=== PATIENT | male | born 1940 ===

== ENCOUNTER → 2019-11-17 08:14 | Outpatient (CLI) | payer BC, MEDICARE ==
--- NOTE | ~2019-11-17 | ST ---
PATIENT:KAE WOODS MEDICAL RECORD: [id number] SEX: M LOCATION:[facility] ORDER #: ADMISSION DATE: 11/17/19 AGE OF PATIENT: 79 REFERRING PHYSICIAN: INTERPRETING PHYSICIAN: JESSICA PANIAGUA MD DATE OF SERVICE: 11/17/2019 NUCLEAR STRESS TEST INDICATION: Angina and coronary artery disease, shortness of breath, hypertension and hyperlipidemia. The patient was exercised on standard Lexiscan protocol with 33 mCi of sestamibi injected at peak stress, 11 mCi used previously for rest images. FINDINGS: Gated SPECT reveals preserved ejection fraction at 67% with good wall motioning and thickening and brightening throughout all segments. SPECT imaging Cardiolite was used as myocardial perfusion agent. There is reversibility inferiorly and apically. This includes the basal, mid, apical inferior segments as well as the apex itself. The degree of reversibility is mild to moderate. The amount of myocardium involved is moderate. OVERALL IMPRESSION: This is an intermediate risk abnormal nuclear stress test, reversibility inferiorly and apically suggestive of hemodynamically significant coronary artery disease. TRANSINT:[id number] Voice Confirmation ID: [id number] DOCUMENT ID: [id number] JESSICA PANIAGUA MD CC: BRIDGETT BOOKER [id number] DICTATION DATE: 11/18/19916 CHEMICAL RECLAMATION EQUIPMENT OPERATOR: 11/19/19618 DEP CLI 11/17/19 [place] [id number] [place] [id number]
== END | disposition home or self-care (01) ==
LOC: D.HCCARDIO 08:14
PROVIDERS: ATTEND Internal Medicine Interventional Cardiology
DX: I25.10 Atherosclerotic heart disease of native coronary artery without angina pectoris (principal)

== ENCOUNTER 2019-11-24 09:03 | Outpatient (CLI) | payer BC ==
[~2019-11-24] VITALS: Ht 180.3 cm; Wt 84.1 kg
--- NOTE | ~2019-11-24 | HEMODYNAMI ---
PATIENT:KAE WOODS MEDICAL RECORD: [id number] : 36 LOCATION:D.CAT ADMISSION DATE: 11/24/19 Generatedon:11/24/201913:14 Patient name: KAE WOODS Patient #: [id number] SSN: DO B: 1940 Date of study: 11/24/2019 Page: Of Hemodynamic Procedure Report Patient Data Patient Demographics Procedure consent was obtained First Name: KAE Gender: Male Last Name: PEGGY : 1940 Middle Initial: R Age: 79 year(s) Patient #: [id number] Race: Unknown Additional ID: [id number] Contact details Address: [address] [place] [address] State: [place] City: [place] Zip code: [address] Past Medical History Allergies: No known allergies Admission Admission Data Admission Date: 11/24/2019 Admission Time: 9:03 Arrival Date: 11/24/2019 Arrival Time: 0:00 Height (in.): 71 BSA: 2.04 (m2) Height (cm.): 180.34 BMI: 25.83 (kg/m2) Weight (lbs.): 185.19 Weight (kg.): 84 Lab Results Lab Result Date: 11/24/2019 Lab Result Time: 0:00 Biochemistry Name Units Result Min Max BUN mg/dl 28 --(----)-* 7 18 Creatinine mg/dl 1.6 --(----)-* 0.6 1.3 eGFR ml/min 44 *-(----)-- 90 120 NONAFRICAN CBC Name Units Result Min Max Hematocrit % 39.3 -*(----)-- 42 54 Hemoglobin g/dl 13.4 -*(----)-- 13.5 17.5 Procedure Procedure Types Cath Procedure Diagnostic Procedure [facility] w/Coronaries FFR/IVUS FFR Initial Sedation Charges Moderate Sedation up to 15 minutes PCI Procedure PTCA PTCA Initial Hemochron ACT Test Procedure Description Procedure Date Procedure Date: 11/24/2019 Procedure Start Time: 12:27 Procedure End Time: 13:12 Procedure Staff Name Function Jona Sellers MD Performing Physician Beryl Shields RT Monitor Fernando Wright RT Scrub Nichol Neumann RN Nurse Procedure Data Cath Procedure Fluoroscopy Diagnostic fluoroscopy Total fluoroscopy Time: time: 12.8 min 12.8 min Diagnostic fluoroscopy Total fluoroscopy dose: dose: 441.31 mGy 441.31 mGy Contrast Material Contrast Material Type Amount (ml) Isovue 300 142 Entry Location Entry Primary Successful Side Size Upsize Upsize Entry Closure Succes sful Closure Location (Fr) 1 (Fr) 2 (Fr) Remarks Device Remarks Femoral Right 5 Fr 6 Fr Exoseal artery Short Estimated blood loss: 10 ml Diagnostic catheters Device Type Used For End Catheter Placement MULTIPACK Pigtail 5 Fr Procedure catheter MULTIPACK JL 4.0 5Fr Procedure catheter MULTIPACK 3DRC 5Fr Procedure catheter Procedure Complications No complications Procedure Medications Medication Administration Route Dosage Oxygen etCO2 Nasal cannula 2 l/min Lidocaine 2% added to field 20 Heparin Flush Bag added to field 2 bags (1000units/500ml NS) 0.9% NaCl I.V. 100 ml/hr Versed I.V. 1 mg Fentanyl I.V. 50 mcg Heparin Bolus I.V. 4000 units Integrilin (Bolus I.V. 7.3 ml 2mg/ml) Versed I.V. 1 mg Fentanyl I.V. 50 mcg Nitroglycerin IC/IA I.C. 200 mcg Fentanyl I.V. 50 mcg Fentanyl I.V. 50 mcg Hemodynamics Rest BSA: 2.04 (m2) O2 Consumption: Estimated: 214.99 (ml/min) O2 Consumption indexed : Estimated:105.39 (ml/min/m) Heart Rate: 47 (bpm) Snapshots Pre Cath Intra NCS Post Cath Vital Signs Time Heart Resp SPO2 etCO2 NIBP (mmHg) Rhythm Pain Sedation Rate (ipm) (%) (mmHg) Status Level (bpm) 12:21:48 53 17 100 31.5 Measuring NSR (Missing) 10(A) 12:22:05 53 17 100 33 193/98(170) NSR (Missing) 10(A) 12:26:37 50 19 100 35.2 176/79(153) NSR (Missing) 10(A) 12:31:05 49 15 100 36.7 168/81(139) NSR (Missing) 9(A) 12:35:32 50 14 100 0 167/79(144) NSR (Missing) 9(A) 12:40:47 51 11 100 9.7 166/79(140) NSR (Missing) 9(A) 12:46:13 50 12 100 3.7 182/98(158) NSR (Missing) 9(A) 12:50:39 52 10 100 26.2 183/91(144) NSR (Missing) 10(A) 12:55:03 71 21 100 29.2 199/111(166) NSR (Missing) 9(A) 12:59:34 65 16 100 30.7 211/109(167) NSR (Missing) 9(A) 13:04:10 58 10 99 24 212/106(163) NSR (Missing) 9(A) 13:08:47 56 12 100 37.5 193/98(154) NSR (Missing) 10(A) 13:13:15 56 10 99 33.7 190/99(159) NSR (Missing) 10(A) Medications Time Medication Route Dose Verified Delivered Reason Note s Effectiveness by by 12:20:11 Oxygen etCO2 2 Jona Buffie used for Nasal l/min Verito Neumann RN procedure cannula 12:20:18 Lidocaine 2% added 20ml Jona Jona for local to vial Verito Sellers MD anesthetic field 12:20:24 Heparin Flush added 2 bags Jona Jona used for Bag to Verito Sellers MD procedure (1000units/500ml field NS) 12:20:33 0.9% NaCl I.V. 100 Jona Buffie Per physician ml/hr Verito Neumann RN 12:27:40 Versed I.V. 1 mg Jona Buffie for sedation Verito Neumann RN 12:27:46 Fentanyl I.V. 50 mcg Jona Buffie for sedation Verito Neumann RN 12:31:30 Versed I.V. 1 mg Jona Buffie for sedation Verito Neumann RN 12:31:34 Fentanyl I.V. 50 mcg Jona Buffie for sedation Verito Neumann RN 12:34:59 Heparin Bolus I.V. 4000 Jona Buffie for veri fied units Verito Neumann RN anticoagulation with dr sellers 12:38:18 Integrilin I.V. 7.3 ml Jona Gandara for wast ed (Bolus 2mg/ml) Verito Neumann RN antiplatelet 2.7 ml therapy of vial 12:54:07 Nitroglycerin I.C. 200mcg Jona Tenorio for IC/IA Verito Sellers MD vasodilation 12:55:59 Fentanyl I.V. 50 mcg Jona Gandara for sedation Verito Neumann RN 12:58:23 Fentanyl I.V. 50 mcg Jona Gandara for sedation Verito Neumann RN Procedure Log Time Note 12:03:15 Informed consent obtained and on chart 12:03:41 Fernando Wright RT(R) (CV) sent for patient. Start room use. 12:03:43 Procedure Status Elective Heart Cath (OP). 12:03:45 Time tracking: Regular hours (M-F 7:00 - 5:00) 12:03:49 Plan of Care:Hemodynamics will remain stable., Cardiac rhythm will remain stable., Comfort level will be maintained., Respiratory function will remain adequate., Patient/ family verbilizes understanding of procedure., Procedure tolerated without complication., Recovers from procedure without complications.. 12:04:03 H&P Date Dictated: 11/10/2019 Within 30 days and on chart., H&P Addendum completed by physician on day of procedure. (MUST COMPLETE FOR ALL OUTPATIENTS). 12:04:10 Patient allergic to No known allergies 12:04:58 Patient Weight : 185.19 lbs 12:06:09 Lab Result : BUN 28 mg/dl 12:06:09 Lab Result : Creatinine 1.6 mg/dl 12:06:09 Lab Result : eGFR NONAFRICAN 44 ml/min 12:06:09 Lab Result : Hemoglobin 13.4 g/dl 12:06:09 Lab Result : Hematocrit 39.3 % 12:08:46 Patient Height : 71 inches 12:08:52 Arrival Date: 11/24/2019 12:00:00 AM 12:09:31 Patient received from Pre/Post Procedure Room to CCL 3 Alert and oriented. Tansferred to table in Supine position. 12:09:32 Warm blankets applied, and artie hugger turned on for patient comfort. 12:09:33 Correct patient and procedure confirmed by team. 12:09:33 ECG and BP/O2 sat monitors applied to patient. 12:19:32 Pre-procedure instructions explained to patient. 12:19:33 Pre-op teaching completed and patient verbalized understanding. 12:19:35 Family in patients room. 12:19:36 Patient NPO since Midnight. 12:19:38 Is the patient allergic to Iodine/contrast media? No. 12:19:41 Is patient on blood thinner?No 12:19:43 Patient diabetic? No. 12:19:46 Previous problem with sedation/anesthesia? No ? 12:19:48 Snore? Yes 12:19:49 Sleep apnea? No 12:19:51 Deviated septum? No 12:19:52 Opens mouth fully? Yes 12:19:54 Sticks out tongue? Yes 12:19:56 Airway obstruction? No ? 12:20:00 Vital chart was started 12:20:11 Oxygen 2 l/min etCO2 Nasal cannula was administered by Nichol Neumann RN; used for procedure; Verbal order read back and verified. 12:20:11 Dentures? Yes in 12:20:17 Pre procedure: right dorsailis pedis pulse 1+ Palpable, but thready & weak; easily obliterated 12:20:18 Lidocaine 2% 20ml vial added to field was administered by Jona Sellers MD; for local anesthetic; Verbal order read back and verified. 12:20:20 Patient pain scale 0/10 ?. 12:20:24 Heparin Flush Bag (1000units/500ml NS) 2 bags added to field was administered by Jona Sellers MD; used for procedure; Verbal order read back and verified. 12:20:26 IV patent on arrival in left hand with 0.9% NaCl at [facility]. 12:20:28 Lab results completed and on chart. 12:20:33 0.9% NaCl 100 ml/hr I.V. was administered by Nichol Neumann RN; Per physician; Verbal order read back and verified. 12:20:47 Right groin area was prepped with chlora-prep and draped in sterile fashion 12:20:48 Alarms reviewed by R. N. 12:20:49 Sharps counted by scrub and verified by R.N. 12:23:57 Risk of Mortality: .3 12:23:59 Risk of blood transfusion: .1 12:24:03 Risk of MAMI: 1.8 12:24:07 --------ALL STOP TIME OUT------ 12:24:08 Final Timeout: patient, procedure, and site verified with staff and physician. All members of the team are in agreement. 12:24:09 Right groin site verified by team. 12:24:12 Fire Safety Assessment: A--An alcohol-based skin anteseptic being used preoperatively., C--Open oxygen or nitrous oxide is being used., D--An ESU, laser, or fiber-optic light is being used. 12:24:14 Physical assessment completed. ASA score P 2 - A patient with mild systemic disease as per Jona Sellers MD. 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 12:24:23 Maximum allowable contrast dose (3.7 X eGFR X 0.75)122 ml. 12:24:25 Sedation plan: IV Moderate Sedation Medication:Versed, Fentanyl 12:25:27 Use device set Femoral Dx 12:25:28 ACIST Syringe (23758) opened to sterile field. 12:25:28 Bag Decanter (2002S) opened to sterile field. 12:25:29 ACIST Hand Control (14240) opened to sterile field. 12:25:30 ACIST Manifold (69331) opened to sterile field. 12:25:30 Tegaderm 4 x 4 (1626W) opened to sterile field. 12:25:31 Medline Cath Pack ([id number]) opened to sterile field. 12:25:32 DIAGNOSTIC Multipack 5Fr catheter set (DH1672) opened to sterile field. 12:25:33 SHEATH 5FR [place] (NVE274) opened to sterile field. 12:25:33 EMERALD Guide Wire (521-163) opened to sterile field. 12:26:27 Zero performed for pressure channel P1 12:27:22 Procedure started. 12:27:22 Full Disclosure recording started 12:27:38 Local anesthetic to right femoral artery with Lidocaine 2% by Jona Sellers MD.INITIAL ACCESS ONLY 12:27:40 Versed 1 mg I.V. was administered by Nichol Neumann RN; for sedation; Verbal order read back and verified. 12:27:46 Fentanyl 50 mcg I.V. was administered by Nichol Neumann RN; for sedation; Verbal order read back and verified. 12::49 Baseline sample Acquired. 12:27:52 Rhythm: sinus bradycardia 12::07 A 5 Fr sheath was inserted into the Right Femoral artery 12::35 A MULTIPACK Pigtail 5 Fr catheter was advanced over the wire and used for Procedure. 12::49 LV gram done using SHAH 12::51 Injector settings: Ml/sec: 10, Volume: 20, 12:30:07 EF : 60 % 12:30:09 Catheter removed. 12:30:17 A MULTIPACK JL 4.0 5Fr catheter was advanced over the wire and used for Procedure. 12:31:13 LCA angiography performed. 12:31:17 Catheter removed. 12:31:22 A MULTIPACK 3DRC 5Fr catheter was advanced over the wire and used for Procedure. 12:31:30 Versed 1 mg I.V. was administered by Nichol Neumann RN; for sedation; Verbal order read back and verified. 12:31:34 Fentanyl 50 mcg I.V. was administered by Nichol Neumann RN; for sedation; Verbal order read back and verified. 12:32:02 RCA angiography performed. 12:32:09 Catheter removed. 12:32:39 ACCDominant side:Right 12:32:47 Proceeding to intervention. 12:32:58 SHEATH 6FR [place] (FXY225) opened to sterile field. 12:32:58 INFLATOR Merit BasixCompak (TR2458) opened to sterile field. 12:32:58 [place] Verrata Plus pressure wire (56804Z) opened to sterile field. 12:33:07 GUIDE 6FR EBU 3.5 catheter ([id number]) opened to sterile field. 12:33:19 Sheath upsized to a 6 Fr Short. 12:33:29 GUIDE 6FR HS II catheter (IN2XVPW) opened to sterile field. 12:34:00 6 Fr HS 2 guide catheter was inserted over the wire 12:34:59 Heparin Bolus 4000 units I.V. was administered by Nichol Neumann RN; for anticoagulation; verified with dr sellers Verbal order read back and verified. 12:35:41 FFR/IFR wire advanced. 12:35:48 Wire advanced across lesion. 12:35:56 RCA lesion measured at .94 with IFR 12:36:01 Wire removed. 12:36:02 Guide catheter removed. 12:36:17 6 Fr EBU 3.5 guide catheter was inserted over the wire 12:38:18 Integrilin (Bolus 2mg/ml) 7.3 ml I.V. was administered by Nichol Neumann RN; for antiplatelet therapy; wasted 2.7 ml of vial Verbal order read back and verified. 12:38:41 CHOICE PT Extra Support 182cm wire ([id number]) opened to sterile field. 12:38:52 CHOICE ES 182 wire advanced. 12:40:13 Wire removed. 12:40:21 NEW WIRE NEEDED. 12:40:24 CHOICE PT Extra Support 182cm wire ([id number]) opened to sterile field. 12:40:36 CHOICE ES 182 wire advanced. 12:40:38 Wire advanced across lesion. 12:40:51 Pre PCI Site: [place] LAD has 95% stenosis. 12:42:13 Inflate balloon Inflation number: 1 A EUPHORA 2.0 x 15 Balloon ([id number]) was prepped and advanced across the Mid LAD , then inflated to 13 EDELMIRA for 0:00 (min:sec) . 12:42:28 Inflation number: 2 The EUPHORA 2.0 x 15 Balloon ([id number]) was reinflated across the Mid LAD , to 21 EDELMIRA for 0:00 (min:sec) . 12:42:38 Inflation number: 3 The EUPHORA 2.0 x 15 Balloon ([id number]) was reinflated across the Mid LAD , to 21 EDELMIRA for 0:00 (min:sec) . 12:42:52 Balloon removed over the wire. 12:44:31 The FORTUNATO OTW 2.25 x 22 stent ([id number]) was advanced then removed because of failure to cross lesion 12:45:51 Inflation number: 4 The EUPHORA 2.0 x 15 Balloon ([id number]) was reinflated across the Mid LAD , to 17 EDELMIRA for 0:00 (min:sec) . 12:46:07 Balloon removed over the wire. 12:47:26 The Mozec Rx 2.5 x 20 balloon was advanced and then removed because of failure to cross lesion 12:48:46 The EUPHORA 2.5 x 20 Balloon ([id number]) was advanced and then removed because of failure to cross lesion 12:50:02 Inflate balloon Inflation number: 5 A EUPHORA 1.5 x 20 Balloon ([id number]) was prepped and advanced across the Mid LAD , then inflated to 21 EDELMIRA for 0:00 (min:sec) . 12:50:34 Balloon removed over the wire. 12:51:58 The EUPHORA 2.5 x 20 Balloon ([id number]) was advanced and then removed because of failure to cross lesion 12:53:47 Inflate balloon Inflation number: 6 A EUPHORA 2.0 x 20 Balloon (HOW0804T) was prepped and advanced across the Mid LAD , then inflated to 17 EDELMIRA for 0:00 (min:sec) . 12:53:48 ACT drawn and resulted at 293 seconds. (normal therapeutic range 180-240 seconds). 12:54:07 Nitroglycerin IC/IA 200mcg I.C. was administered by Jona Sellers MD; for vasodilation; Verbal order read back and verified. 12:54:14 Inflation number: 7 The EUPHORA 2.0 x 20 Balloon ([id number]) was reinflated across the Mid LAD , to 21 EDELMIRA for 0:00 (min:sec) . 12:54:53 Balloon removed over the wire. 12:54:58 CHOICE PT Extra Support 182cm wire ([id number]) opened to sterile field. 12:55:10 2ND WIRE USED A KASSIE WIRE 12:55:52 KASSIE WIRE ADVANCED ACROSS WIRE 12:55:59 Fentanyl 50 mcg I.V. was administered by Nichol Neumann RN; for sedation; Verbal order read back and verified. 12:56:47 The EUPHORA 2.0 x 20 Balloon ([id number]) was advanced and then removed because of failure to cross lesion 12:58:23 Fentanyl 50 mcg I.V. was administered by Nichol Neumann RN; for sedation; Verbal order read back and verified. 12:58:29 KASSIE WIRE REMOVED 12:59:10 Timer 1 started at 12:58 PM, stopped at 12:59 PM, duration 00:00:14 sec. 12:59:16 Inflate balloon Inflation number: 8 A EUPHORA 1.5 x 20 Balloon ([id number]) was prepped and advanced across the Mid LAD , then inflated to 17 EDELMIRA for 0:00 (min:sec) . 12:59:35 Timer 1 started at 12:59 PM, stopped at 12:59 PM, duration 00:00:04 sec. 12:59:36 Inflation number: 9 The EUPHORA 1.5 x 20 Balloon ([id number]) was reinflated across the Mid LAD , to 17 EDELMIRA for 0:00 (min:sec) . 12:59:55 Balloon removed over the wire. 13:00:57 The EUPHORA 2.0 x 20 Balloon (KDN1395T) was advanced and then removed because of failure to cross lesion 13:02:00 Wire removed. 13:02:00 Guide catheter removed. 13:02:26 EXOSEAL 6Fr (EX600) opened to sterile field. 13:02:36 Sheath removed intact; hemostasis achieved with Exoseal to the Right Femoral artery. 13:02:38 Procedure ended.(Physican Out) 13:03:28 Fluoroscopy time 12.80 minutes. 13:03:34 Fluoroscopy dose: 441.31 mGy 13:03:34 Flurop Dose total: 441.31 13:05:02 Dose Area Product 2853 mGy/cm. 13:05:07 Contrast amount:Isovue 300 142ml. 13:05:12 Maximum allowable dose exceeded? Yes. 13:05:14 Sharps counted by scrub and verified by R.N. 13:05:19 Post-op/insertion site Right Femoral artery dressed using a 4 x 4 and Tegaderm. 13:05:35 Post-procedure physical assessment completed. ASA score P 2 - A patient with mild systemic disease as per Jona Sellers MD. 13:05:38 Post procedure rhythm: unchanged. 13:05:43 Estimated blood loss: 10 ml 13:05:44 Post procedure instruction explained to patient.Patient verbalizes understanding. 13:05:44 Patient needs reinforcement of post procedure teaching. 13:06:20 Procedure type changed to Cath procedure, Diagnostic procedure, LHC, LHC w/Coronaries, FFR/IVUS, FFR Initial, Sedation Charges, Moderate Sedation up to 15 minutes, PCI procedure, PTCA, PTCA Initial, Hemochron ACT Test 13:09:46 Femstop placed over the right femoral artery at 132 mmHg. Hemostasis achieved. 13:09:49 Procedure and supply charges have been captured, reviewed, submitted and are correct. 13:10:08 Procedure Complication : No complications 13:10:16 [facility] Findings: MVD- CABG consult 13:10:21 [facility] Findings: MVD- PCI performed (see procedure note) 13:10:23 Operative report dictated upon procedure completion. 13:10:24 See physician's report for complete and final results. 13:10:25 Report given to Pre/Post Procedure Room. 13:10:42 Patient transfered to Pre/Post Procedure Room with Bed. 13:12:41 Vital chart was stopped 13:12:44 Procedure ended. 13:12:44 Full Disclosure recording stopped 13:12:49 End room use (Document Last) 13:13:10 End room use (Document Last) 13:13:47 End room use (Document Last) Intervention Summary Intervention Notes Time ActionType Lesion and Equipment Action# Pressure Duration Attributes Used 12:42:13 Inflate Mid LAD EUPHORA 2.0 x 1 13 00:00 balloon 15 Balloon ([id number]) 12:42:28 Reinflate Mid LAD EUPHORA 2.0 x 2 21 00:00 balloon 15 Balloon ([id number]) 12:42:38 Reinflate Mid LAD EUPHORA 2.0 x 3 21 00:00 balloon 15 Balloon ([id number]) 12:44:31 Discard FORTUNATO OTW 2.25 Stent x 22 stent ([id number]) 12:45:51 Reinflate Mid LAD EUPHORA 2.0 x 4 17 00:00 balloon 15 Balloon ([id number]) 12:47:26 Discard Mozec Rx 2.5 Balloon x 20 balloon 12:48:46 Discard EUPHORA 2.5 x Balloon 20 Balloon ([id number]) 12:50:02 Inflate Mid LAD EUPHORA 1.5 x 5 21 00:00 balloon 20 Balloon ([id number]) 12:51:58 Discard EUPHORA 2.5 x Balloon 20 Balloon (LDH8453B) 12:53:47 Inflate Mid LAD EUPHORA 2.0 x 6 17 00:00 balloon 20 Balloon (DDY1609A) 12:54:14 Reinflate Mid LAD EUPHORA 2.0 x 7 21 00:00 balloon 20 Balloon ([id number]) 12:56:47 Discard EUPHORA 2.0 x Balloon 20 Balloon ([id number]) 12:59:16 Inflate Mid LAD EUPHORA 1.5 x 8 17 00:00 balloon 20 Balloon (SLM5069V) 12:59:36 Reinflate Mid LAD EUPHORA 1.5 x 9 17 00:00 balloon 20 Balloon ([id number]) 13:00:57 Discard EUPHORA 2.0 x Balloon 20 Balloon ([id number]) Device Usage Item Name Manufacture Quantity Catalog Number Hospital Part Current Minimal Lot# / Charge Number Stock Stock Serial# Code ACIST Syringe Acist 1 54437 146661 117673 500301 20 (62213) Medical Systems Inc Bag Decanter Microtek 1 2001S 635574 40477 366103 5 (2001S) Medical Inc. ACIST Hand Acist 1 34196 878177 647862 023882 5 Control Medical (53461) Systems Inc ACIST Acist 1 91583 444482 077508 578783 5 Manifold Medical (78158) Systems Inc Tegaderm 4 x 3M 1 1626W 382051 556642 050230 5 4 (1626W) Medline Cath Medline 1 [id number] 455547 69666 762139 5 Pack ([id number]) DIAGNOSTIC Cardinal 1 ME7642 808856 50190 263015 30 Multipack 5Fr Health catheter set (UC2155) SHEATH 5FR Terumo 1 CMC588 964369 850584 070972 5 [place] (XZU460) EMERALD Guide Cardinal 1 502-455 779547 263596 285704 5 Wire Health (502-455) MULTIPACK Cardinal 1 808543 5 Pigtail 5 Fr Health catheter MULTIPACK JL Cardinal 1 350218 5 4.0 5Fr Health catheter MULTIPACK Cardinal 1 626640 5 3DRC 5Fr Health catheter SHEATH 6FR Terumo 1 VPB819 209388 412567 108621 40 [place] (UQH007) INFLATOR Merit 1 TI8378 299974 790440 421375 15 [facility] Medical BasixCompak (IR0693) [place] 1 61645S 585359 073602686 445658 5 Verrata Plus pressure wire (42227X) GUIDE 6FR EBU Medtronic 1 [id number] 757047 04855 040860 3 3.5 catheter ([id number]) GUIDE 6FR HS Medtronic 1 [id number] 054707 70478 652187 1 II catheter (EN2VSGE) CHOICE PT [place] 3 [id number] 002141 638071 360866 5 Extra Support Scientific 182cm wire ([id number]) EUPHORA 2.0 x Medtronic 1 APF0043Z 237292 649833 114428 5 15 Balloon ([id number]) FORTUNATO OTW 2.25 Medtronic 1 [id number] 379250 76121 773100 5 x 22 stent ([id number]) Mozec Rx 2.5 Cardinal 1 [id number] 704025 76032 000861 5 x 20 balloon Health EUPHORA 2.5 x Medtronic 1 [id number] 364082 242625 580963 5 20 Balloon ([id number]) EUPHORA 1.5 x Medtronic 2 [id number] 401363 843854 947388 5 20 Balloon ([id number]) EUPHORA 2.0 x Medtronic 1 [id number] 894618 536807 767105 5 20 Balloon ([id number]) EXOSEAL 6Fr Cardinal 1 EX600 547674 135553 029279 10 (EX600) Health Signature Audit [place] Stage Time Signature Unsigned Intra-Procedure 11/24/2019 Beryl Shields 1:13:10 PM RT(R) Intra-Procedure 11/24/2019 Nichol Neumann RN 1:13:47 PM Intra-Procedure 11/24/2019 Jona Sellers 1:14:21 PM [place] [id number] [facility] [place] [address]
--- NOTE | ~2019-11-24 | OP ---
PATIENT NAME: KAE WOODS MEDICAL RECORD: [id number] :36 LOCATION:D.CAT ADMISSION DATE: SURGEON: JESSICA PANIAGUA MD DATE OF OPERATION: 11/24/2019 PROCEDURES: 1. PTCA, LAD. 2. IFR RCA. 3. Left heart catheterization. 4. Selective coronary angiography. 5. Left ventriculogram. INDICATION: Angina and coronary artery disease. PROCEDURE IN DETAIL: After informed consent was obtained and after detailed explanation of risks, benefits as well as alternative therapies, the patient elected to proceed with angiogram and angioplasty. The right femoral area was prepped and draped in normal sterile fashion. Right femoral artery was cannulated via modified Seldinger technique with placement of 6-Bolivian sheath. All catheters exchanged through this sheath. FINDINGS: Left ventriculogram was performed in standard 30-degree SHAH view, reveals good cardiac wall motion throughout all segments. Overall ejection fraction estimated at 60%. SELECTIVE CORONARY ANGIOGRAPHY: 1. Left main showed no significant angiographic disease. 2. Left anterior descending has a previously placed stent. This has 99% in-stent restenosis distally. 3. Left circumflex has mild irregularities, but no flow-limiting stenosis. 4. The right coronary has a questionable 70% stenosis distally; however, IFR was normal. PTCA OF THE LAD: We tried multiple balloons. The only balloon that would go across is a 1.5 balloon and each time we inflated the 1.5 balloon, we had a balloon rupture, no 2/2.5 balloon would go into this stenosis. OVERALL IMPRESSION: 99% stenosis of the LAD amenable to bypass surgery only. TRANSINT:[id number] Voice Confirmation ID: [id number] DOCUMENT ID: [id number] JESSICA PANIAGUA MD CC: [id number] DICTATION DATE: 11/24/19 1308 BODY MECHANIC: 11/24/19 1548 DEP CLI 11/24/19 [place] [id number] [place] [address]
[2019-11-24] MEDS ORDERED: GABAPENTIN100 MG PO (09:44)
[2019-11-24] MEDS ORDERED: LISINOPRIL-HCT1 EAC4 PO (09:44)
[2019-11-24] MEDS ORDERED: MOBIC7.5 MG PO (09:45)
[2019-11-24] MEDS ORDERED: CRESTOR10 MG PO (09:45)
[2019-11-24 10:00] VITALS: BP 180/83; BMI 25.8
[2019-11-24 10:14] LABS: BASOPHILS 0.3 % (0-2); EOSINOPHILS 1.3 % (0-7); HEMATOCRIT 39.3 % (42.0-54.0); HEMOGLOBIN 13.4 g/dL (13.5-17.5); IMMATURE GRANULOCYTES 0.1 % (0-5); LYMPHOCYTES 28.4 % (15-50); MCH 32.4 pg (26.0-34.0); MCHC 34.1 g/dL (31.0-37.0); MCV 95.2 fL (80.0-100.0); MEAN PLATELET VOLUME 8.5 fL (7.4-10.4); MONOCYTES 8.4 % (2-11); NEUTROPHILS 61.5 % (40-80); PLATELET COUNT 108 10x3/uL (130-400); RBC 4.13 10x6/uL (4.20-6.10); RDW 12.5 % (11.5-14.5); WBC 6.9 10x3/uL (4.8-10.8)
[2019-11-24 10:31] LABS: ANION GAP 12.8 mmol/L (8-16); CALCIUM 9.3 mg/dL (8.5-10.1); CARBON DIOXIDE 26.6 mmol/L (21.0-32.0); CHOL - HDL RATIO 3.8 ratio (2.3-4.9); CREATININE - SERUM 1.6 mg/dL (0.6-1.3); LDL-HDL RATIO 1.7 ratio (1.5-3.5); POTASSIUM - SERUM 4.4 mmol/L (3.5-5.1)
--- NOTE | 2019-11-24 13:25 | NUR ---
REC TO ROOM VIA STRETCHER FROM [employer] MANAGER. MONITORING INITIATED. FEMSTOP TO R GROIN, DRESSING CDI TEGADERM AND 4X4. FEMSTOP AT 100MMHG. NOTED FIRM AREA/RIDGE R THIGH JUST DISTAL TO FEMSTOP. MARKED EDGES, EFRA AND NATASHA FROM LAB HERE TO ASSESS, CONT TO MONITOR. DR PANIAGUA HERE SPEAKING W FAMILY.SB 57, BP 179/70, RR 12, SAT 95%
--- NOTE | 2019-11-24 14:00 | NUR ---
R GROIN CDI, FEMSTOP IN PLACE, NO S/S BLEEDING OR HEMATOMA. RIDGE/SWELLING R THIGH UNCHANGED IN SIZE/CHARACTER. , FAMILY AT BEDSIDE. FEMSTOP REMAINS AT 100MMHG. BP 170/77, SB 48, SAT 100% 2LNC.
--- NOTE | 2019-11-24 14:45 | NUR ---
FEMSTOP IN PLACE R GROIN, NO S/S BLEEDING OR EXTENSION OF HEMATOMA. PPP. DR ELLIOTT HERE SPEAKING W PT AND FAMILY.
[2019-11-24 15:11] VITALS: Ht 180.3 cm; Wt 84.1 kg
--- NOTE | 2019-11-24 15:15 | NUR ---
R GROIN SOFT, NO S/S BLEEDING OR EXTENSION OF HEMATOMA. RELEASED PRESSURE FROM FEMSTOP TO 50MMHG. FAMILY AT BEDSIDE.
--- NOTE | 2019-11-24 15:30 | NUR ---
R GROIN WITHOUT S/S BLEEDING OR EXTENSION OF HEMATOMA. FIRM AREA TO R THIGH REMAINS WITHIN MARKING AND HAS SOFTENED. FEMSTOP REMOVED. R GROIN REMAINS SOFT, PPP. BP 98/54, SB 45. FAMILY AT BEDSIDE.
--- NOTE | 2019-11-24 16:14 | NUR ---
HOB UP FOR PT COMFORT. COFFEE PER REQUEST. BP RESPONSE TO CLONIDINE GOOD, BP 89/48, SB 47. FAMILY AT BEDSIDE.
--- NOTE | 2019-11-24 16:29 | NUR ---
SANDWICH, COFFEE PROVIDED. BP 96/49. R GROIN REMAINS SOFT, NO S/S BLEEDING OR HEMATOMA. PPP.
--- NOTE | 2019-11-24 16:45 | NUR ---
R GROIN SOFT, NO S/S BLEEDING OR HEMATOMA. IV DC TIP INTACT. MONITORING DC. DRESSING W 'S ASSIST.
--- NOTE | 2019-11-24 17:00 | NUR ---
AMBULATED TO REST ROOM AND BACK, STEADY, NO C/O. VOIDED WITHOUT DIFFICULTY.
--- NOTE | 2019-11-24 17:15 | NUR ---
DC INSTRUCTIONS REVIEWED W PT, AND DTR. VERBALIZED UNDERSTANDING.
--- NOTE | 2019-11-24 17:37 | NUR ---
PT DC HOME VIA WHEELCHAIR TO PRIVATE CAR WITH PT AND FAMILY. PT HAS ALL BELONGINGS.
== END 2019-11-24 17:20 | disposition home or self-care (01) ==
LOC: D.CATH 09:03
PROVIDERS: ATTEND Internal Medicine Interventional Cardiology
DX: I25.119 Atherosclerotic heart disease of native coronary artery with unspecified angina pectoris (principal); E78.5 Hyperlipidemia, unspecified; I10 Essential (primary) hypertension; R06.09 Other forms of dyspnea